=== PATIENT | male | born 1960 | race Caucasian/White ===

== ENCOUNTER → 2017-10-13 | Outpatient (CLI) | payer OTHER ==
[~2017-10-13] MED LIST: GADOBUTROL 10 MMOL/10 ML PFS ONE
== END | disposition home or self-care (01) ==
LOC: RAD 10:27
PROVIDERS: ATTEND Family Medicine
DX: G47.59 Other parasomnia (principal); R53.83 Other fatigue; R51 Headache; R42 Dizziness and giddiness; R53.1 Weakness
CPT/HCPCS: 70553; A9585